=== PATIENT | male | born 1960 | race Caucasian/White ===

== ENCOUNTER 2024-04-15 07:06 | Inpatient (IN) | payer BC ==
[~2024-04-15] VITALS: Ht 177.8 cm; Wt 89.1 kg
[2024-04-15 10:07] LABS: BASOPHILS % 0.2 % (0.0-1.0); EOSINOPHILS % 0.4 % (0.0-6.0); HEMATOCRIT 42.6 % (38.2-49.6); LYMPHOCYTES # (AUTO) 2.5 (1.0-3.2); LYMPHOCYTES % 25.1 % (18.0-39.1); MEAN CORPUSCULAR HEMOGLOBIN 32.9 pg (28-32); MEAN CORPUSCULAR HGB CONC 32.9 g/dL (31-35); MEAN CORPUSCULAR VOLUME 100.2 fL (81-99); MONOCYTES # (AUTO) 0.6 (0.2-0.8); MONOCYTES % 6.2 % (4.4-11.3); NEUTROPHILS # (AUTO) 6.7 (2.1-6.9); NEUTROPHILS % 67.8 % (38.7-80.0); PLATELET COUNT 183 x10e3/uL (140-360); RED BLOOD COUNT 4.25 x10e6/uL (4.3-5.7); RED CELL DISTRIBUTION WIDTH 12.3 % (11.7-14.4); WHITE BLOOD COUNT 9.94 x10e3/uL (4.8-10.8)
[2024-04-15 10:11] LABS: INR 1.04; PROTHROMBIN TIME 14.1 seconds (11.9-14.5)
[2024-04-15 10:12] LABS: PARTIAL THROMBOPLASTIN TIME 27.6 seconds (23.8-35.5)
[2024-04-15 10:16] LABS: ALBUMIN 3.8 g/dL (3.5-5.0); ALBUMIN/GLOBULIN RATIO 1.4 (0.8-2.0); ANION GAP 14.1 mmol/L (8-16); BILIRUBIN,TOTAL 0.6 mg/dL (0.2-1.2); CALCIUM 8.8 mg/dL (8.4-10.2); CREATININE, SERUM 0.83 mg/dL (0.72-1.25); POTASSIUM 4.1 mmol/L (3.5-5.1); TOTAL PROTEIN 6.5 g/dL (6.5-8.1)
[2024-04-15] MEDS ORDERED: HYDRALAZINE HCL 20 MG/ML VIAL IV PRN (13:00)
[2024-04-15] MEDS ORDERED: POLYETHYLENE GLYCOL 3350 17 GM PACK PO PRN (13:00)
[2024-04-15] MEDS ORDERED: METFORMIN HCL500 M1 (14:18)
[2024-04-15] MEDS ORDERED: FLOMAX0.4 MG (14:18)
[2024-04-15] MEDS ORDERED: ALLOPURINOL100 MG (14:18)
[2024-04-15] MEDS ORDERED: LISINOPRIL5 MG (14:18)
[2024-04-15 15:48] VITALS: PULSE 74; RESP 20; O2SAT 98
[2024-04-15] MEDS ORDERED: LIDOCAINE 2%/ EPINEPHRINE 20ML MDV ONE (17:52)
[2024-04-15] MEDS ORDERED: ROPIVACAINE 0.5% 5 MG/ML 30 ML SDV ONE (17:52)
[2024-04-15] MEDS: DOCUSATE SODIUM 100 MG CAP PO SCH (18:04)
[2024-04-15] MEDS: ACETAMINOPHEN 325 MG TAB PO PRN (18:11)
[2024-04-15 18:59] VITALS: PULSE 74; RESP 19; TEMP 98.2
[2024-04-15] MEDS: SODIUM CHLORIDE 0.9% 1000ML 1,000 ML IV SCH (19:07)
[2024-04-15 20:00] VITALS: BP 129/79; PULSE 64; RESP 18; TEMP 97.5; O2SAT 97
[2024-04-15 20:35] VITALS: PULSE 71; RESP 20; O2SAT 98
[2024-04-15 21:00] VITALS: BP 129/79; PULSE 64; RESP 18; TEMP 97; TEMP 97.5; O2SAT 97
[2024-04-16] VITALS: BP 123/82; PULSE 72; RESP 18; TEMP 97.7; O2SAT 96
[2024-04-16 06:00] LABS: BASOPHILS % 0.4 % (0.0-1.0); EOSINOPHILS # (AUTO) 0.2 (0.0-0.4); EOSINOPHILS % 2.4 % (0.0-6.0); HEMATOCRIT 39.5 % (38.2-49.6); HEMOGLOBIN 12.9 g/dL (14.0-18.0); LYMPHOCYTES # (AUTO) 2.9 (1.0-3.2); LYMPHOCYTES % 36.2 % (18.0-39.1); MEAN CORPUSCULAR HEMOGLOBIN 33.2 pg (28-32); MEAN CORPUSCULAR HGB CONC 32.7 g/dL (31-35); MEAN CORPUSCULAR VOLUME 101.8 fL (81-99); MONOCYTES # (AUTO) 0.6 (0.2-0.8); MONOCYTES % 7.6 % (4.4-11.3); NEUTROPHILS # (AUTO) 4.2 (2.1-6.9); NEUTROPHILS % 52.9 % (38.7-80.0); PLATELET COUNT 169 x10e3/uL (140-360); RED BLOOD COUNT 3.88 x10e6/uL (4.3-5.7); RED CELL DISTRIBUTION WIDTH 12.2 % (11.7-14.4); WHITE BLOOD COUNT 7.91 x10e3/uL (4.8-10.8)
[2024-04-16 06:40] LABS: ALBUMIN 3.3 g/dL (3.5-5.0); ALBUMIN/GLOBULIN RATIO 1.3 (0.8-2.0); ANION GAP 11.8 mmol/L (8-16); BILIRUBIN,TOTAL 0.7 mg/dL (0.2-1.2); CALCIUM 8.2 mg/dL (8.4-10.2); CREATININE, SERUM 0.83 mg/dL (0.72-1.25); POTASSIUM 3.8 mmol/L (3.5-5.1); TOTAL PROTEIN 5.8 g/dL (6.5-8.1)
[2024-04-16 06:56] LABS: CHOL/HDL RATIO 3.5 (3.9-4.7); MAGNESIUM 1.7 MG/DL (1.3-2.1); PHOSPHORUS 3.7 MG/DL (2.3-4.7)
[2024-04-16] MEDS: FAMOTIDINE 20 MG/2 ML VIAL IV SCH (09:00)
[2024-04-16] MEDS ORDERED: KETAMINE 50MG/5ML SYR ONE (09:05)
[2024-04-16] MEDS ORDERED: MIDAZOLAM HCL 2 MG/2 ML VIAL ONE ×2 (09:05→11:03)
[2024-04-16 09:12] VITALS: BP 141/87; PULSE 77; RESP 20; TEMP 97.4; O2SAT 98
[2024-04-16] MEDS ORDERED: BUPIVACAINE HCL 0.5% INJ 30 ML VIAL INJ ONE (09:20)
[2024-04-16] MEDS ORDERED: CLINDAMYCIN PHOS 900MG/ 50ML 50 ML IV ONE ×2 (10:09→10:31)
[2024-04-16] MEDS ORDERED: BUPIVACAINE 0.25% 30ML SDV ONE (10:51)
[2024-04-16] MEDS ORDERED: FENTANYL CITRATE/PF 100MCG/2 ML INJ ONE (11:03)
[2024-04-16] MEDS: FENTANYL CITRATE/PF 100MCG/2 ML INJ ONE (12:15)
[2024-04-16 15:48] VITALS: BP 149/80; PULSE 87; RESP 18; TEMP 97.5; O2SAT 98
[2024-04-16] MEDS ORDERED: ACETAMINOPHEN 1000 MG/100 ML IV ONE (16:20)
[2024-04-16] MEDS ORDERED: ONDANSETRON HCL INJ 2MG/ML 2ML 2 MG/ML VIAL ONE (16:20)
[2024-04-16] MEDS ORDERED: PROPOFOL IV EMULSION 10 MG/ML 20 ML VIAL ONE (16:20)
[2024-04-16] MEDS ORDERED: METOCLOPRAMIDE HCL 10 MG/2ML VIAL ONE (16:20)
[2024-04-16] MEDS ORDERED: PHENYLEPHRINE HCL 1% 10 MG/ML VIAL ONE (16:20)
[2024-04-16] MEDS ORDERED: SUGAMMADEX SODIUM 200 MG/2 ML VIAL IV ONE (16:20)
[2024-04-16] MEDS ORDERED: SEVOFLURANE INHAL SOLN 250 ML PEN BTL ONE (16:20)
[2024-04-16] MEDS ORDERED: EPHEDRINE SULFATE INJ 50 MG/ML VIAL ONE (16:20)
[2024-04-16] MEDS ORDERED: LIDOCAINE HCL 2% LOCAL INJ 5 ML SDV VIAL INJ ONE (16:20)
[2024-04-16] MEDS ORDERED: ROCURONIUM BROMIDE 10 MG/ML 5ML VIAL IV ONE (16:20)
[2024-04-16] MEDS: Clindamycin INJ 300 MG/50 ML 50 ML IV SCH (17:05)
[2024-04-16] MEDS: MAGNESIUM SULF 1GRAM/DEXTROSE 100 ML IV ONE (17:06)
[2024-04-16 17:50] LABS: FREE T4 (FREE THYROXINE) 0.9 ng/dL (0.8-1.8); THYROID STIMULATING HORMONE 1.022 uIU/mL (0.350-4.940)
[2024-04-16] MEDS: Morphine 4mg INJECTION 4 MG/ML INJ IV PRN (19:18)
[2024-04-16] MEDS: ONDANSETRON HCL INJ 2MG/ML 2ML 2 MG/ML VIAL IV PRN (19:18)
[2024-04-16 20:55] VITALS: BP 108/53; PULSE 83; PULSE 87; RESP 18; TEMP 98.6; O2SAT 96
[2024-04-16 23:56] VITALS: BP 108/53; PULSE 87; RESP 18; TEMP 98.6; O2SAT 96
[2024-04-17] VITALS (8 sets, daily range): BP systolic 102–121; BP diastolic 66–75; PULSE 76–84; RESP 18–19; TEMP 98–99.6; O2SAT 93–98
[2024-04-17 06:03] LABS: BASOPHILS % 0.1 % (0.0-1.0); EOSINOPHILS # (AUTO) 0.1 (0.0-0.4); EOSINOPHILS % 0.6 % (0.0-6.0); HEMATOCRIT 36.9 % (38.2-49.6); HEMOGLOBIN 12.7 g/dL (14.0-18.0); LYMPHOCYTES # (AUTO) 2.1 (1.0-3.2); LYMPHOCYTES % 20.5 % (18.0-39.1); MEAN CORPUSCULAR HEMOGLOBIN 35.8 pg (28-32); MEAN CORPUSCULAR HGB CONC 34.4 g/dL (31-35); MEAN CORPUSCULAR VOLUME 103.9 fL (81-99); MONOCYTES % 9.7 % (4.4-11.3); NEUTROPHILS # (AUTO) 7.1 (2.1-6.9); NEUTROPHILS % 68.6 % (38.7-80.0); PLATELET COUNT 166 x10e3/uL (140-360); RED BLOOD COUNT 3.55 x10e6/uL (4.3-5.7); RED CELL DISTRIBUTION WIDTH 12.5 % (11.7-14.4); WHITE BLOOD COUNT 10.35 x10e3/uL (4.8-10.8)
[2024-04-17 06:22] LABS: ANION GAP 12.2 mmol/L (8-16); CALCIUM 8.1 mg/dL (8.4-10.2); CREATININE, SERUM 0.86 mg/dL (0.72-1.25); POTASSIUM 4.2 mmol/L (3.5-5.1)
[2024-04-17] MEDS: LISINOPRIL 10 MG TAB PO SCH (09:00)
[2024-04-17] MEDS: ALLOPURINOL 100 MG TAB PO SCH (09:00)
[2024-04-17] MEDS: METFORMIN HCL 500 MG TAB CR PO SCH (09:00)
[2024-04-17] MEDS: ENOXAPARIN 30 MG/0.3 ML SYR SC SCH (11:43)
[2024-04-17] MEDS ORDERED: ASPIRIN CHEW81 MG PO (16:43)
[2024-04-17] MEDS ORDERED: ACETAMINOPHEN325 M1 PO (16:43)
[2024-04-17] MEDS ORDERED: COLACE100 M1 PO (16:43)
[2024-04-17] MEDS ORDERED: MIRALAX17 GM PO (16:43)
[2024-04-17] MEDS ORDERED: CEPACOL SORE THROAT LOZENGES PO PRN (16:45)
[2024-04-17] MEDS ORDERED: CEPACOL SORE T1 EAC5 PO (16:47)
[2024-04-17] MEDS ORDERED: ACETAMINOPHEN-1 EAC4 PO (16:52)
[2024-04-17] MEDS ORDERED: ENOXAPARIN 30 MG/0.3 ML SYR SC SCH (17:00)
[2024-04-17] MEDS ORDERED: CEPACOL SORE THROAT LOZENGES PO ONE (17:30)
[2024-04-17] MEDS ORDERED: TAMSULOSIN HCL 0.4 MG CAP PO SCH (21:00)
== END 2024-04-17 17:45 | disposition home or self-care (01) | DRG 482 ==
LOC: ER 07:12 → ERHOLD 12:31 → MED/SURG2 20:43
PROVIDERS: ADMIT Internal Medicine; ATTEND Internal Medicine
PROC: 0QS706Z Reposition Left Upper Femur with Intramedullary Internal Fixation Device, Open Approach (ICD-10-PCS; principal; 2024-04-16 09:45)
DX: S72.142A Displaced intertrochanteric fracture of left femur, initial encounter for closed fracture (principal); E11.9 Type 2 diabetes mellitus without complications; E83.42 Hypomagnesemia; M10.9 Gout, unspecified; N40.0 Benign prostatic hyperplasia without lower urinary tract symptoms; W18.39XA Other fall on same level, initial encounter; Y92.838 Other recreation area as the place of occurrence of the external cause; Z79.84 Long term (current) use of oral hypoglycemic drugs; Z98.84 Bariatric surgery status; Z88.0 Allergy status to penicillin
CPT/HCPCS: 36415; 70450; 71045; 72192; 76000; 80048; 80053; 80061; 82948; 83036; 83735; 84100; 84439; 84443; 85025; 85610; 85730; 86850; 86900; 93005; 94799; 99252; 99284; C1713; J1650; J2001; J2250; J2270; J2371; J2405; J2765; J2795; J3475; J7030

== ENCOUNTER → 2024-04-27 | Outpatient (RCR) | payer BC ==
[~2024-04-27] MED LIST: ACETAMINOPHEN-1 EAC4 PO; ACETAMINOPHEN325 M1 PO; ALLOPURINOL100 MG; ASPIRIN CHEW81 MG PO; CEPACOL SORE T1 EAC5 PO; COLACE100 M1 PO; FLOMAX0.4 MG; LISINOPRIL5 MG; METFORMIN HCL500 M1; MIRALAX17 GM PO
== END ==
LOC: PT 14:19
PROVIDERS: ATTEND Internal Medicine
DX: S72.115A Nondisplaced fracture of greater trochanter of left femur, initial encounter for closed fracture (principal); S72.8X2A Other fracture of left femur, initial encounter for closed fracture

== ENCOUNTER 2024-05-21 15:00 | Outpatient (RCR) | payer BC | END 2024-05-28 | LOC: PT 15:00 | PROVIDERS: ATTEND Internal Medicine | DX: S72.8X2A Other fracture of left femur, initial encounter for closed fracture (principal) ==